=== PATIENT | female | born 1990 | race Caucasian/White ===

== ENCOUNTER 2017-05-31 11:24 | Outpatient (CLI) | payer OTHER | END 2017-05-31 12:42 | disposition home or self-care (01) | LOC: LAB 11:24 | DX: J30.81 Allergic rhinitis due to animal (cat) (dog) hair and dander (principal); R21 Rash and other nonspecific skin eruption; J30.1 Allergic rhinitis due to pollen; J30.2 Other seasonal allergic rhinitis ==

== ENCOUNTER 2017-09-03 14:58 | Outpatient (CLI) | payer OTHER | END 2017-09-03 15:01 | disposition home or self-care (01) | LOC: LAB 14:58 | DX: D50.9 Iron deficiency anemia, unspecified (principal); E83.51 Hypocalcemia; E03.9 Hypothyroidism, unspecified; N39.0 Urinary tract infection, site not specified; R82.79 Other abnormal findings on microbiological examination of urine; Z11.3 Encounter for screening for infections with a predominantly sexual mode of transmission; N83.209 Unspecified ovarian cyst, unspecified side ==

== ENCOUNTER 2017-09-04 12:32 | Outpatient (CLI) | payer OTHER | END 2017-09-04 15:58 | disposition home or self-care (01) | LOC: SONOGRAMA 12:32 | DX: R10.2 Pelvic and perineal pain (principal) ==

== ENCOUNTER 2017-09-09 15:55 | Emergency (ER) | payer OTHER ==
[~2017-09-09] VITALS: Ht 157.5 cm; Wt 64.9 kg
[2017-09-09] MEDS ORDERED: KETO10TA2 PO (18:28)
[2017-09-09] MEDS ORDERED: METRONIDAZOLE500 MG PO (18:28)
== END 2017-09-09 19:02 | disposition home or self-care (01) ==
LOC: ER 15:55
DX: N39.0 Urinary tract infection, site not specified (principal); M54.5 Low back pain

== ENCOUNTER 2017-09-11 14:09 | Outpatient (CLI) | payer OTHER ==
[~2017-09-11 14:09] MED LIST: KETO10TA2 PO; METRONIDAZOLE500 MG PO
== END 2017-09-11 14:23 | disposition home or self-care (01) ==
LOC: LAB 14:09
DX: N39.0 Urinary tract infection, site not specified (principal); N30.00 Acute cystitis without hematuria

== ENCOUNTER 2017-09-11 14:34 | Outpatient (CLI) | payer OTHER | END 2017-09-11 15:56 | disposition home or self-care (01) | LOC: SONOGRAMA 14:34 | DX: N20.0 Calculus of kidney (principal) ==

== ENCOUNTER 2018-11-24 18:18 | Emergency (ER) | payer OTHER ==
[~2018-11-24] VITALS: Ht 157.5 cm; Wt 62.6 kg
== END 2018-11-24 21:28 | disposition home or self-care (01) ==
LOC: ER 18:18
DX: J31.0 Chronic rhinitis (principal); R42 Dizziness and giddiness

== ENCOUNTER 2019-06-24 10:58 | Emergency (ER) | payer OTHER ==
[~2019-06-24] VITALS: Ht 157.5 cm; Wt 55.3 kg
[2019-06-24] MEDS ORDERED: IBU600 MG PO (16:46)
[2019-06-24] MEDS ORDERED: TESSALON PERLE100 M1 PO (16:46)
[2019-06-24] MEDS ORDERED: MUCINEX DM ER1 EAC1 PO (16:46)
[2019-06-24] MEDS ORDERED: THERAFLU COLD1 EAC1 PO (16:46)
== END 2019-06-24 17:20 | disposition home or self-care (01) ==
LOC: ER 10:58 → EDBD 10:59 → ER 10:59
DX: J06.9 Acute upper respiratory infection, unspecified (principal)

== ENCOUNTER 2021-08-29 17:36 | Emergency (ER) | payer OTHER ==
[~2021-08-29] VITALS: Ht 157.5 cm; Wt 62.6 kg
[~2021-08-29 17:36] MED LIST changes: +IBU600 MG PO; +MUCINEX DM ER1 EAC1 PO; +TESSALON PERLE100 M1 PO; +THERAFLU COLD1 EAC1 PO
[2021-08-30] MEDS ORDERED: INTESTINEX680 M1 PO (19:44)
[2021-08-30] MEDS ORDERED: PEPCID AC20 MG PO (19:44)
[2021-08-30] MEDS ORDERED: LEVSIN0.125 MG PO (19:44)
== END 2021-08-30 20:04 | disposition home or self-care (01) ==
LOC: ER 17:36
DX: R10.2 Pelvic and perineal pain (principal); K52.9 Noninfective gastroenteritis and colitis, unspecified; N83.292 Other ovarian cyst, left side
CPT/HCPCS: 36415; 74177; Q9965

== ENCOUNTER 2022-06-25 11:18 | Emergency (ER) | payer OTHER ==
[~2022-06-25] VITALS: Ht 157.5 cm; Wt 60.8 kg
[~2022-06-25 11:18] MED LIST changes: +INTESTINEX680 M1 PO; +LEVSIN0.125 MG PO; +PEPCID AC20 MG PO
== END 2022-06-25 15:43 | disposition home or self-care (01) ==
LOC: ER 11:18
DX: O21.0 Mild hyperemesis gravidarum (principal); O30.041 Twin pregnancy, dichorionic/diamniotic, first trimester; Z3A.01 Less than 8 weeks gestation of pregnancy; Z91.013 Allergy to seafood

== ENCOUNTER 2022-06-29 14:55 | Emergency (ER) | payer OTHER ==
[~2022-06-29] VITALS: Ht 157.5 cm; Wt 60.8 kg
[2022-06-29] MEDS ORDERED: PROMETRIUM200 MG PO (15:21)
[2022-06-29] MEDS ORDERED: VITAMIN B-650 M1 PO (15:22)
[2022-06-29] MEDS ORDERED: VITATRUE COMBO1 EACH PO (15:22)
[2022-06-29] MEDS ORDERED: UNISOM25 MG PO (15:23)
== END 2022-06-29 19:39 | disposition home or self-care (01) ==
LOC: ER 14:55
DX: O21.0 Mild hyperemesis gravidarum (principal); O30.001 Twin pregnancy, unspecified number of placenta and unspecified number of amniotic sacs, first trimester; Z3A.00 Weeks of gestation of pregnancy not specified

== ENCOUNTER 2022-07-06 12:05 | Emergency (ER) | payer OTHER ==
[~2022-07-06] VITALS: Ht 157.5 cm; Wt 62.1 kg
[~2022-07-06 12:05] MED LIST changes: +PROMETRIUM200 MG PO; +UNISOM25 MG PO; +VITAMIN B-650 M1 PO; +VITATRUE COMBO1 EACH PO
[2022-07-06] MEDS ORDERED: ZOFRAN8 MG (12:13)
== END 2022-07-06 17:59 | disposition home or self-care (01) ==
LOC: ER 12:05
DX: O21.0 Mild hyperemesis gravidarum (principal); Z3A.08 8 weeks gestation of pregnancy; Z91.013 Allergy to seafood

== ENCOUNTER 2022-07-23 16:02 | Emergency (ER) | payer OTHER ==
[~2022-07-23] VITALS: Ht 157.5 cm; Wt 60.8 kg
[~2022-07-23 16:02] MED LIST changes: +ZOFRAN8 MG
== END 2022-07-23 21:11 | disposition home or self-care (01) ==
LOC: ER 16:02
DX: O20.9 Hemorrhage in early pregnancy, unspecified (principal); Z3A.09 9 weeks gestation of pregnancy; Z37.3 Twins, one liveborn and one stillborn; Z91.013 Allergy to seafood

== ENCOUNTER 2022-08-08 09:12 | Outpatient (CLI) | payer OTHER | END 2022-08-08 11:00 | disposition home or self-care (01) | LOC: PRENATAL 09:12 | PROVIDERS: ATTEND Obstetrics & Gynecology Maternal & Fetal Medicine | DX: O36.80X0 Pregnancy with inconclusive fetal viability, not applicable or unspecified (principal); O30.90 Multiple gestation, unspecified, unspecified trimester; Z3A.12 12 weeks gestation of pregnancy ==

== ENCOUNTER 2022-08-16 12:50 | Emergency (ER) | payer OTHER ==
[~2022-08-16] VITALS: Ht 157.5 cm; Wt 62.1 kg
== END 2022-08-16 21:01 | disposition home or self-care (01) ==
LOC: ER 12:50
DX: O26.892 Other specified pregnancy related conditions, second trimester (principal); O21.0 Mild hyperemesis gravidarum; R55 Syncope and collapse; Z3A.14 14 weeks gestation of pregnancy; Z37.3 Twins, one liveborn and one stillborn; Z91.013 Allergy to seafood

== ENCOUNTER 2022-08-19 10:49 | Outpatient (CLI) | payer OTHER | END 2022-08-19 10:50 | disposition home or self-care (01) | LOC: SONOGRAMA 10:49 | PROVIDERS: ATTEND Specialist | DX: R31.9 Hematuria, unspecified (principal) ==

== ENCOUNTER 2022-08-27 08:39 | Outpatient (CLI) | payer OTHER | END 2022-08-27 09:40 | disposition home or self-care (01) | LOC: PRENATAL 08:39 | PROVIDERS: ATTEND Obstetrics & Gynecology Maternal & Fetal Medicine | DX: Z76.1 Encounter for health supervision and care of foundling (principal) ==

== ENCOUNTER 2022-10-02 08:02 | Outpatient (CLI) | payer OTHER | END 2022-10-02 09:48 | disposition home or self-care (01) | LOC: PRENATAL 08:02 | PROVIDERS: ATTEND Obstetrics & Gynecology Maternal & Fetal Medicine | DX: O35.9XX0 Maternal care for (suspected) fetal abnormality and damage, unspecified, not applicable or unspecified (principal); O44.00 Complete placenta previa NOS or without hemorrhage, unspecified trimester; Z14.8 Genetic carrier of other disease; Z3A.20 20 weeks gestation of pregnancy ==

== ENCOUNTER 2022-10-13 04:58 | Outpatient (CLI) | payer OTHER ==
[2022-10-13] MEDS ORDERED: CEFUROXIME500 MG PO (14:10)
== END 2022-10-13 14:44 | disposition home or self-care (01) ==
LOC: OBS/DEL 04:58
PROVIDERS: ATTEND Specialist
DX: O23.32 Infections of other parts of urinary tract in pregnancy, second trimester (principal); N39.0 Urinary tract infection, site not specified; Z3A.21 21 weeks gestation of pregnancy; Z91.013 Allergy to seafood

== ENCOUNTER 2022-12-24 09:08 | Outpatient (CLI) | payer OTHER ==
[~2022-12-24 09:08] MED LIST changes: +CEFUROXIME500 MG PO
== END 2022-12-24 10:21 | disposition home or self-care (01) ==
LOC: PRENATAL 09:08
PROVIDERS: ATTEND Obstetrics & Gynecology Maternal & Fetal Medicine
DX: O26.849 Uterine size-date discrepancy, unspecified trimester (principal); O36.8199 Decreased fetal movements, unspecified trimester, other fetus; Z14.8 Genetic carrier of other disease; O44.00 Complete placenta previa NOS or without hemorrhage, unspecified trimester; Z3A.31 31 weeks gestation of pregnancy

== ENCOUNTER 2023-01-21 09:47 | Inpatient (IN) | payer OTHER ==
[~2023-01-21] VITALS: Ht 157.5 cm; Wt 77.6 kg
[2023-02-17 01:29] LABS: HEMATOCRIT 28.6 % (36.0-45.00); MEAN CELL VOLUME 92.8 fL (80.00-100.00); MEAN CORPUSCULAR HGB CONC 34.4 g/dl (32.0-36.0); PLATELET COUNT 259 K/uL (150-450); RED BLOOD COUNT 3.08 M/uL (4.00-6.00); RED CELL DISTRIBUTION WIDTH 13.2 % (11.5-14.5)
[2023-02-17 01:37] LABS: HEMOGLOBIN 9.8 g/dL (12.0-15.00); MEAN CORPUSCULAR HEMOGLOBIN 31.8 pg (27.00-32.0)
[2023-02-18] MEDS ORDERED: IBUPROFEN800 MG PO (08:20)
== END 2023-02-18 10:49 | disposition home or self-care (01) | DRG 807 ==
LOC: LDR 02-15 09:31 → OB/GYN 02-16 15:55
PROVIDERS: ADMIT Specialist; ATTEND Specialist
PROC: 4A1HXCZ Monitoring of Products of Conception, Cardiac Rate, External Approach (ICD-10-PCS; 2023-02-15)
PROC: 10E0XZZ Delivery of Products of Conception, External Approach (ICD-10-PCS; principal; 2023-02-16)
PROC: 0HQ9XZZ Repair Perineum Skin, External Approach (ICD-10-PCS; 2023-02-16)
DX: O70.0 First degree perineal laceration during delivery (principal); Z37.0 Single live birth; Z3A.39 39 weeks gestation of pregnancy; Z20.822 Contact with and (suspected) exposure to COVID-19

== ENCOUNTER 2023-02-09 13:46 | Outpatient (CLI) | payer OTHER | END 2023-02-09 14:36 | disposition home or self-care (01) | LOC: OBS/DEL 13:46 | PROVIDERS: ATTEND Specialist | DX: O47.1 False labor at or after 37 completed weeks of gestation (principal); Z3A.38 38 weeks gestation of pregnancy ==

== ENCOUNTER 2023-02-14 15:57 | Outpatient (CLI) | payer OTHER ==
[~2023-02-14] VITALS: Ht 157.5 cm; Wt 77.6 kg
[2023-02-14 16:32] LABS: URINE APPEARANCE Clear; URINE BILIRRUBIN Negative (NEGATIVE); URINE BLOOD Moderate; URINE COLOR Yellow; URINE GLUCOSE Negative (NEGATIVE); URINE LEUKOCYTE Negative; URINE NITRATE Negative; URINE PROTEIN Negative (NEGATIVE); URINE UROBILINOGEN 0.2 E.U./dl
[2023-02-14 16:35] LABS: URINE BACTERIA 31.4 uL (0.0-1933); URINE EPITHELIAL CELLS 5.2 uL (0.0-38.8); URINE WBC 4.1 uL (0.0-23.2)
[2023-02-14 16:37] LABS: HEMATOCRIT 34.2 % (36.0-45.00); HEMOGLOBIN 11.8 g/dL (12.0-15.00); MEAN CELL VOLUME 92.4 fL (80.00-100.00); MEAN CORPUSCULAR HEMOGLOBIN 31.8 pg (27.00-32.0); MEAN CORPUSCULAR HGB CONC 34.4 g/dl (32.0-36.0); PLATELET COUNT 272 K/uL (150-450); RED BLOOD COUNT 3.69 M/uL (4.00-6.00); RED CELL DISTRIBUTION WIDTH 13.2 % (11.5-14.5)
== END 2023-02-15 09:30 | disposition still patient (30) ==
LOC: OBS/DEL 15:57
PROVIDERS: Obstetrics & Gynecology; ATTEND Specialist
DX: O26.893 Other specified pregnancy related conditions, third trimester (principal); R10.2 Pelvic and perineal pain; Z3A.39 39 weeks gestation of pregnancy